=== PATIENT | female | born 1975 | race African-American/Black ===

== ENCOUNTER 2018-06-01 14:29 | Emergency (ER) | payer OTHER ==
[2018-06-01 15:08] LABS: Bilirubin Negative (Negative); Blood, Urine Negative (Negative); Clarity TURBID (Clear); Glucose, Urine (Dipstick) Negative (Negative); Leukocyte Large (Negative); Nitrite Negative (Negative); Protein, Urine (Dipstick) Negative (Neg-Trace); Specific Gravity, Urine 1.014 (1.002-1.036); Urobilinogen 0.2 mg/dL (0.2-1.0); pH, Urine 5.5 (5.0-9.0)
[2018-06-01 15:09] LABS: Bacteria/HPF 2+ HPF (None Seen); RBC/HPF 0-3 HPF (0-3); Squamous Epithelial 21-50 HPF (0-3); Yeast-AUWi Flag 15.7 (0-25.0)
[2018-06-01 15:21] LABS: Pathc Cast-AUWi Flag 6.25 (0-2.49)
[2018-06-01 15:23] LABS: Hyaline Casts/LPF 0-3 HYALINE CAST LPF (0-3 Hyaline); Other Casts/LPF None Seen LPF (0-3 Hyaline)
[2018-06-01 15:42] LABS: #Basophils 0.1 thou/uL (0.0-0.2); #Eosinphils 0.5 thou/uL (0.0-0.7); #Lymphocytes 2.6 thou/uL (1.20-3.40); #Monocytes 0.5 thou/uL (0.11-0.59); #Neutrophils 1.6 thou/uL (1.40-6.50); %Basophils 1.4 % (0.0-1.0); %Eosinophils 9.2 % (0.0-10.0); %Lymphocytes 49.5 % (21.0-51.0); %Monocytes 9.6 % (0.0-10.0); %Neutrophils 30.3 % (42.0-75.0); Hemoglobin 8.9 g/dL (12.0-16.0); Mean Corpuscular HGB CONC 31.1 g/dL (32.0-36.0); Mean Corpuscular Hemoglobin 19.8 pg (27.0-31.0); Mean Corpuscular Volume 63.6 fL (78.0-98.0); Mean Platelet Volume 10.9 fL (7.4-10.4); Platelet Count 294 thou/uL (130-400); RBC Distribution Width 16.1 % (11.5-14.5); Red Blood Cell (RBC) Count 4.47 mill/uL (4.20-5.40); White Blood Cell (WBC) Count 5.3 thou/uL (4.8-10.8)
[2018-06-01 15:47] LABS: INR-International Normal Ratio 2.9
[2018-06-01] MEDS ORDERED: Ketorolac Tromethamine 60 MG/2 ML VIAL ONE (15:48)
[2018-06-01 16:06] LABS: ALT (SGPT) 8 U/L (8-55); AST (SGOT) 11 U/L (5-34); Albumin 3.8 g/dL (3.5-5.0); Alkaline Phosphatase 72 U/L (40-150); Anion Gap 7 mmol/L (10-20); BUN (Urea Nitrogen) 5 mg/dL (7.0-18.7); Bilirubin, Total 0.5 mg/dL (0.2-1.2); Calc. Creatinine Clearance 0 mL/min (70-130); Calcium 8.9 mg/dL (7.8-10.44); Carbon Dioxide 25 mmol/L (22-29); Chloride 108 mmol/L (98-107); Estimated GFR-MDRD 90; Globulin 3.2 g/dL (2.4-3.5); Glucose 86 mg/dL (70-105); Sodium 136 mmol/L (136-145)
[2018-06-01 16:07] LABS: Anisocytosis SLIGHT = 6-15 cells (100X) (0-5/hpf); Elliptocytes SLIGHT = 2-5 cells (100X) (0-1/hpf); Hypochromia SLIGHT = 6-15 cells (100X) (0-5/hpf); MDiff Complete? YES; Microcytosis SLIGHT = 6-15 cells (100X) (0-5/hpf); Ovalocytes SLIGHT = 2-5 cells (100X) (0-1/hpf); PLT Morphology Comment Appears Adequate; Poikilocytosis SLIGHT = 6-15 cells (100X) (0-5/hpf); Polychromasia SLIGHT = 2-3 cells (100X) (0-2/hpf); Reflex for Review?? YES; Schistocytes SLIGHT = 2-5 cells (100X) (0-1/hpf); Spherocytes SLIGHT = 1-5 cells (100X) (None Seen); Target Cells SLIGHT = 2-5 cells (100X) (0-1/hpf)
== END 2018-06-01 16:03 | disposition home or self-care (01) ==
LOC: ERS 14:29
DX: N39.0 Urinary tract infection, site not specified (principal); I11.0 Hypertensive heart disease with heart failure; I50.9 Heart failure, unspecified; K21.9 Gastro-esophageal reflux disease without esophagitis; Z86.73 Personal history of transient ischemic attack (TIA), and cerebral infarction without residual deficits; F41.9 Anxiety disorder, unspecified; F43.10 Post-traumatic stress disorder, unspecified; Z79.899 Other long term (current) drug therapy
CPT/HCPCS: 36415; 80053; 81003; 81015; 85025; 85060; 85610; 87086; 96372; J1885

== ENCOUNTER 2019-01-26 13:48 | Outpatient (CLI) | payer OTHER ==
--- NOTE | 2019-01-26 14:55 | MRI ---
MRI RIGHT KNEE: Date: 01/26/19 PROVIDED CLINICAL HISTORY: Right knee pain. FINDINGS: The anterior cruciate ligament, posterior cruciate ligament, medial collateral ligament, and lateral collateral ligamentous complex demonstrate an intact MR appearance. There is signal alteration on flu id sensitive sequences involving the proximal patellar tendon suggesting tendinitis. The extensor mec hanism appears otherwise unremarkable. There is abnormal signal present involving the body and body-posterior horn junction of the lateral m eniscus compatible with nondisplaced complex tear. The medial meniscus demonstrates no evidence for t ear. There is articular cartilage irregularity and apparent full thickness articular cartilage loss involv ing the cranial aspects of the median ridge of the patella. Articular cartilage appears otherwise pre served. There is a physiologic amount of fluid within the knee joint. No focal concerning regional marrow or muscular signal abnormality is evident. Parameniscal cyst form ation is seen superficial to the inferior aspects of the medial patellar retinaculum, measuring appro ximately 1.9 cm in greatest transverse dimension involving its superficial component and a smaller co mponent deep to the patellar retinaculum adjacent to the anterior aspect of the medial tibial plateau . IMPRESSION: 1. Lateral meniscal tear as described. 2. Patellar chondrosis as described. 3. Parameniscal cyst formation at the anteromedial aspect of the knee as described. POS: OFF
== END 2019-01-26 13:49 | disposition home or self-care (01) ==
LOC: BICMRI 13:48
PROVIDERS: ATTEND Orthopaedic Surgery
DX: S83.241A Other tear of medial meniscus, current injury, right knee, initial encounter (principal); S83.281A Other tear of lateral meniscus, current injury, right knee, initial encounter

== ENCOUNTER 2019-02-06 17:08 | Observation (INO) | payer OTHER ==
[2019-02-06 17:42] LABS: Hemoglobin 11.8 g/dL (12.0-16.0); Mean Corpuscular HGB CONC 31.6 g/dL (32.0-36.0); Mean Corpuscular Hemoglobin 21.6 pg (27.0-31.0); Mean Corpuscular Volume 68.3 fL (78.0-98.0); Mean Platelet Volume 10.6 fL (7.4-10.4); Platelet Count 286 thou/uL (130-400); RBC Distribution Width 18.9 % (11.5-14.5); Red Blood Cell (RBC) Count 5.48 mill/uL (4.20-5.40); White Blood Cell (WBC) Count 6.5 thou/uL (4.8-10.8)
--- NOTE | 2019-02-06 17:48 | RAD ---
Chest one view HISTORY: Chest pain. COMPARISON: 04/23/2000 seen. FINDINGS: Cardiac silhouette and pulmonary vasculature are unremarkable. Mediastinum is midline. No c onfluent airspace consolidation or evidence of pneumothorax. IMPRESSION: No active cardiopulmonary abnormalities are demonstrated.
[2019-02-06 18:03] LABS: #Basophils 0.1 thou/uL (0.0-0.2); #Eosinphils 0.4 thou/uL (0.0-0.7); #Lymphocytes 3.1 thou/uL (1.20-3.40); #Monocytes 0.6 thou/uL (0.11-0.59); #Neutrophils 2.3 thou/uL (1.40-6.50); %Basophils 0.8 % (0.0-1.0); %Eosinophils 6.4 % (0.0-10.0); %Monocytes 9.8 % (0.0-10.0); %Neutrophils 35.1 % (42.0-75.0); Anisocytosis SLIGHT = 6-15 cells (100X) (0-5/hpf); Elliptocytes SLIGHT = 2-5 cells (100X) (0-1/hpf); Hypochromia SLIGHT = 6-15 cells (100X) (0-5/hpf); MDiff Complete? YES; Microcytosis SLIGHT = 6-15 cells (100X) (0-5/hpf); Platelet Morphology Comment Appears Adequate; Poikilocytosis SLIGHT = 6-15 cells (100X) (0-5/hpf)
[2019-02-06 18:07] LABS: ALT (SGPT) 7 U/L (8-55); AST (SGOT) 8 U/L (5-34); Albumin 4.3 g/dL (3.5-5.0); Alkaline Phosphatase 80 U/L (40-150); Anion Gap 12 mmol/L (10-20); BUN (Urea Nitrogen) 7 mg/dL (7.0-18.7); Bilirubin, Total 0.9 mg/dL (0.2-1.2); Calc. Creatinine Clearance 0 mL/min (70-130); Calcium 9.6 mg/dL (7.8-10.44); Carbon Dioxide 22 mmol/L (22-29); Chloride 107 mmol/L (98-107); Estimated GFR-MDRD 90; Globulin 3.5 g/dL (2.4-3.5); Glucose 89 mg/dL (70-105); Protein, Total 7.8 g/dL (6.0-8.3); Sodium 137 mmol/L (136-145)
[2019-02-06 20:29] LABS: Troponin I Less than 0.010 ng/mL (< 0.028)
[2019-02-06] MEDS ORDERED: Ondansetron ODT 4 MG TAB PO PRN (21:02)
[2019-02-07 00:50] LABS: Troponin I Less than 0.010 ng/mL (< 0.028)
[2019-02-07] MEDS ORDERED: Acetaminophen 325 MG TAB ONE (01:10)
[2019-02-07] MEDS: Acetaminophen 325 MG TAB PO PRN (01:13)
--- NOTE | 2019-02-07 01:51 | HP ---
PRIMARY CARE DOCTOR: The patient goes to [facility]. CODE STATUS: Full code. TIME OF EVALUATION: 9:20 p.m. CHIEF COMPLAINT: Chest pain. HISTORY OF PRESENT ILLNESS: This is a 43 [id number] patient, past medical history of polycystic ovarian disease, bulging disk in the back, congestive heart failure, hypertension, GERD, pulmonary embolism, on chronic anticoagulation, came to the hospital after having chest pain. The chest pain has been present for the past month with no clear triggers, no alleviating factors. The patient has family history of coronary artery disease. Dr. Capone has seen the patient and the patient had a stress test that was positive and she has been offered cardiac cath and the patient has been sent to the hospital. We will admit to the hospital and then defer to Dr. Capone for any further plan. The symptoms have been present for a month now, have been moderate. REVIEW OF SYSTEMS: CONSTITUTIONAL: No fever, chills, or generalized weakness. RESPIRATORY: No cough, sputum production, or shortness of breath. CARDIOVASCULAR: No chest pain or palpitation. GASTROINTESTINAL: No nausea, no vomiting, diarrhea, or abdominal pain. FOREST AIDE: No dizziness, headache, or feeling lightheaded. GENITOURINARY: No burning on urination. EXTREMITIES: No leg swelling. All other systems were reviewed and negative except for the findings mentioned above. PAST MEDICAL HISTORY: As mentioned in the HPI. PAST SURGICAL HISTORY: The patient has a history of tubal ligation. PSYCHIATRIC HISTORY: Anxiety and PTSD. FAMILY HISTORY: Reviewed and noncontributory to current presentation. SOCIAL HISTORY: The patient denies alcohol use. No drug use. She is a former smoker, quit smoking the past year. father with heart problems. KNOWN ALLERGIES: To sulfa. REPORTED MEDICATIONS: 1. Hydrochlorothiazide and acetaminophen. 2. Neurontin. 3. Flexeril. 4. Nexium. 5. Medrol. 6. Eliquis. 7. Buspirone. PHYSICAL EXAMINATION: VITAL SIGNS: On presentation, blood pressure 130/72 with heart rate 81, respiratory rate was 16, temperature 99.6. Pain was 9/10. Oxygen saturation was 100 on room air. GENERAL APPEARANCE: The patient is alert, oriented, in no acute distress. HEENT: Eyes, normal conjunctivae. Moist oral mucosa. Anicteric. No JVD. RESPIRATORY: Bilateral air entry. No rales. No wheezes. Symmetric expansion. CARDIOVASCULAR: Normal rate, regular rhythm. No murmurs. No gallop. No edema. ABDOMEN: Soft, normal bowel sounds. MUSCULOSKELETAL: Baseline range of motion and strength. SKIN: Warm, intact. No pallor. No rash. No redness. Capillary refill seems to be intact. NEURO: No evidence of any new focal weakness. Cranial nerves seem to be intact. PSYCHIATRIC: The patient is in good mood. No anxiety. Optimal judgment. DIAGNOSTIC DATA: EKG was reviewed. The patient has normal sinus rhythm with a rate of 69, [place] 184, QRS 88, QT corrected 439. Chest x-ray was reviewed. The patient has no active cardiopulmonary abnormalities. LABORATORY DATA: Reviewed. The patient has a white count of 6.5, hemoglobin 9.8, hematocrit 37.4, MCV 68.3, platelet count 286. Chemistry; sodium 137, potassium 4.0, chloride 107, carbon dioxide 22, anion gap 12, BUN 7, creatinine 0.84, GFR 90, glucose 89, calcium 9.6, total bilirubin 0.9. LFTs were negative. Troponin was negative x2. Serum total protein 7.8, albumin 4.3, globulin 3.5, albumin to globulin ratio is 1.2. ASSESSMENT AND PLAN: The patient will be placed in the hospital with follow medical problems. 1. Unstable angina. The patient had the symptoms for the past month and had been on and off with no significant improvement. Dr. Capone is seeing her and sent her to the hospital, most likely go for cardiac cath in the morning. We will follow recommendation from Cardiology. 2. Reportedly, history of congestive heart failure. Reconcile home medications and treat accordingly. 3. History of gastroesophageal reflux disease, reconcile home medications. 4. History of pulmonary embolism. The patient has been recommended to be on life long anticoagulation, that is why she takes Eliquis on a daily basis. If any bridge needs to be done, heparin drip would be the best way to go. 5. Deep venous thrombosis prophylaxis. The patient is on chronic anticoagulation. Job ID: [id number] [facility]
[2019-02-07] MEDS ORDERED: HYDROcodone/Acetaminophen 5/325 mg Tablet ONE (03:39)
[2019-02-07] MEDS ORDERED: HYDROcodone/Acetaminophen 10/325 mg Tablet ONE (03:40)
[2019-02-07] MEDS: HYDROcodone/Acetaminophen 10/325 mg Tablet PO PRN (03:42)
[2019-02-07 04:03] LABS: #Eosinphils 0.4 thou/uL (0.0-0.7); #Lymphocytes 3.8 thou/uL (1.20-3.40); #Monocytes 0.6 thou/uL (0.11-0.59); %Basophils 0.6 % (0.0-1.0); %Eosinophils 5.7 % (0.0-10.0); %Lymphocytes 48.3 % (21.0-51.0); %Monocytes 7.5 % (0.0-10.0); %Neutrophils 37.9 % (42.0-75.0); Hemoglobin 10.7 g/dL (12.0-16.0); Mean Corpuscular HGB CONC 31.8 g/dL (32.0-36.0); Mean Corpuscular Hemoglobin 21.8 pg (27.0-31.0); Mean Corpuscular Volume 68.7 fL (78.0-98.0); Platelet Count 248 thou/uL (130-400); White Blood Cell (WBC) Count 7.8 thou/uL (4.8-10.8)
[2019-02-07 04:37] LABS: Anion Gap 11 mmol/L (10-20); BUN (Urea Nitrogen) 8 mg/dL (7.0-18.7); Calc. Creatinine Clearance 0 mL/min (70-130); Calcium 9.7 mg/dL (7.8-10.44); Carbon Dioxide 24 mmol/L (22-29); Chloride 107 mmol/L (98-107); Estimated GFR-MDRD Greater than 90; Glucose 94 mg/dL (70-105); Potassium 3.7 mmol/L (3.5-5.1); Sodium 138 mmol/L (136-145)
[2019-02-07] MEDS ORDERED: HYDROcodone/Acetaminophen 5/325 mg Tablet PO PRN (08:10)
[2019-02-07] MEDS ORDERED: Loratadine 10 MG TAB PO PRN (08:10)
[2019-02-07] MEDS ORDERED: hydrALAZINE 20 MG/ML VIAL SLOW IVP PRN (08:10)
[2019-02-07] MEDS ORDERED: Bisacodyl 10 MG SUPP PR PRN (08:10)
[2019-02-07] MEDS ORDERED: Sodium Chloride 0.65% Nasal 44 ML BOT EA NARE PRN (08:10)
[2019-02-07] MEDS ORDERED: Cepastat Lozenges 1 LOZ PO PRN (08:10)
[2019-02-07] MEDS ORDERED: Ondansetron PF 4 MG/2 ML Vial IVP PRN (08:10)
[2019-02-07] MEDS ORDERED: Senokot S 8.6-50 MG TAB PO PRN (08:10)
[2019-02-07] MEDS ORDERED: Zolpidem Tartrate 5 MG TAB PO PRN (08:10)
[2019-02-07] MEDS ORDERED: Loperamide HCl 2 MG CAP PO PRN (08:10)
[2019-02-07] MEDS ORDERED: Diabetic Tussin 200 MG/10 ML UDCUP PO PRN (08:10)
[2019-02-07] MEDS ORDERED: Nitroglycerin 0.4 MG TAB (25 Tab Bottle) SL PRN (08:10)
[2019-02-07] MEDS ORDERED: Enoxaparin Sodium 40 MG/0.4 ML SYRINGE SC SCH (09:00)
[2019-02-07 09:10] LABS: Iron 24 ug/dL (50-170); Iron Binding Capacity, Total 416 mcg/dL (265-497)
[2019-02-07] MEDS ORDERED: Iron Sucrose Complex 200 MG in Sodium Chloride 0.9% 250 ML 250 ML IVPB SCH (09:45)
[2019-02-07] MEDS ORDERED: Iron, Sodium Ferric Gluconate 250 MG in Sodium Chloride 0.9% 100 ML IVPB SCH (10:15)
--- NOTE | 2019-02-07 11:15 | PDOC.PN ---
- Subjective Encounter Start Date: 02/07/19 Encounter Start Time: 07:00 -: old records requested/rev Patient seen and examined. No new complaints. No overnight events - Objective Resuscitation Status - Order Detail: 02/06/19 21:02 Resuscitation Status Routine Resuscitation Status: FULL: Full Resuscitation MAR Reviewed: Yes Result Diagrams: 02/07/19 03:39 02/07/19 03:39 Radiology Reviewed by me: Yes EKG Reviewed by me: Yes Phys Exam - Physical Examination Constitutional: NAD HEENT: PERRLA, moist MMs, sclera anicteric Neck: no JVD, supple Respiratory: no wheezing, no rales, no rhonchi, clear to auscultation bilateral Cardiovascular: RRR, no significant murmur, no rub Gastrointestinal: soft, non-tender, no distention, positive bowel sounds Musculoskeletal: no edema, pulses present Neurological: non-focal, normal sensation, moves all 4 limbs Lymphatic: no nodes Psychiatric: normal affect, A&O x 3 Skin: no rash, normal turgor Dx/Plan (1) Chest pain Code(s): R07.9 - CHEST PAIN, UNSPECIFIED Status: Acute (2) Anxiety Code(s): F41.9 - ANXIETY DISORDER, UNSPECIFIED Status: Chronic (3) Chronic back pain Code(s): M54.9 - DORSALGIA, UNSPECIFIED; G89.29 - OTHER CHRONIC PAIN Status: Chronic (4) GERD (gastroesophageal reflux disease) Code(s): K21.9 - GASTRO-ESOPHAGEAL REFLUX DISEASE WITHOUT ESOPHAGITIS Status: Chronic (5) Hypertension Code(s): I10 - ESSENTIAL (PRIMARY) HYPERTENSION Status: Chronic (6) Microcytic anemia Code(s): D50.9 - IRON DEFICIENCY ANEMIA, UNSPECIFIED Status: Chronic (7) Nonischemic cardiomyopathy Code(s): I42.9 - CARDIOMYOPATHY, UNSPECIFIED Status: Chronic (8) Obesity Code(s): E66.9 - OBESITY, UNSPECIFIED Status: Chronic (9) History of pulmonary embolism Code(s): Z86.711 - PERSONAL HISTORY OF PULMONARY EMBOLISM Status: Acute - Plan cont current plan of care * pt is off Elliquis since wednesday, cardiology to do cath * echo today * will check ferritin and then give IV iron * medication reviewed as below * symptomatic treatment. * spoke with cardiology Review of Systems - Review of Systems ENT: negative: Ear Pain, Ear Discharge, Nose Pain, Nose Discharge, Nose Congestion, Mouth Pain, Mouth Swelling, Throat Pain, Throat Swelling, Other Respiratory: negative: Cough, Dry, Shortness of Breath, Hemoptysis, SOB with Excertion, Pleuritic Pain, Sputum, Wheezing Cardiovascular: negative: chest pain, palpitations, orthopnea, paroxysmal nocturnal dyspnea, edema, light headedness, other Gastrointestinal: negative: Nausea, Vomiting, Abdominal Pain, Diarrhea, Constipation, Melena, Hematochezia, Other Genitourinary: negative: Dysuria, Frequency, Incontinence, Hematuria, Retention , Other Musculoskeletal: negative: Neck Pain, Shoulder Pain, Arm Pain, Back Pain, Hand Pain, Leg Pain, Foot Pain, Other Skin: negative: Rash, Lesions, Jerald, Bruising, Other - Medications/Allergies Allergies/Adverse Reactions: Allergies Allergy/AdvReac Type Severity Reaction Status Date / Time Sulfa (Sulfonamide Allergy Verified 09/16/15 20:44 Antibiotics) Medications: Current Medications Acetaminophen (Tylenol) 650 mg PO Q4H PRN PRN Reason: Headache/Fever/Mild Pain (1-3) Last Admin: 02/07/19 01:13 Dose: 650 mg Hydrocodone Bitart/Acetaminophen ([place] 10/325) 1 tab PO Q4H PRN PRN Reason: Moderate Pain (4-6) Last Admin: 02/07/19 03:42 Dose: 1 tab Hydrocodone Bitart/Acetaminophen ([place] 5/325) 1 tab PO Q4H PRN PRN Reason: Moderate Pain (4-6) Bisacodyl (Dulcolax) 10 mg [place] DAILYPRN PRN PRN Reason: Constipation Carvedilol (Coreg) 6.25 mg PO BID-[facility] Guaifenesin (Robitussin Sf) 200 mg PO Q4H PRN PRN Reason: Cough Hydralazine HCl (Apresoline) 10 mg SLOW IVP Q4H PRN PRN Reason: SBP > 180 and HR < 70 Ferric Sodium Gluconate Complex 250 mg/ Sodium Chloride 120 mls @ 60 mls/hr IVPB [facility] Stop: 02/07/19 12:15 Loperamide HCl (Imodium) 2 mg PO PRN PRN PRN Reason: Diarrhea/Loose Stools Loratadine (Claritin) 10 mg PO DAILYPRN PRN PRN Reason: Sinus Symptoms Nitroglycerin (Nitrostat) 0.4 mg SL Q5MIN PRN PRN Reason: Chest Pain Ondansetron HCl (Zofran Odt) 4 mg PO Q6H PRN PRN Reason: Nausea/Vomiting Ondansetron HCl (Zofran) 4 mg IVP Q6H PRN PRN Reason: Nausea/Vomiting Senna/Docusate Sodium (Senokot S) 2 tab PO BID PRN PRN Reason: Constipation Sodium Chloride ([place] Nasal [place] 0.65%) 0 ml EA NARE QIDPRN PRN PRN Reason: Nasal Congestion Throat Lozenges (Cepastat Lozenges) 1 ykle PO Q2H PRN PRN Reason: Sore Throat Zolpidem Tartrate (Ambien) 5 mg PO HSPRN PRN PRN Reason: Insomnia
[2019-02-07] MEDS: Carvedilol 6.25 MG TAB PO SCH ×2 (15:28→17:15)
[2019-02-07] MEDS ORDERED: Sacubitril 24.5 MG/Valsartan 25.5 MG TABLET PO SCH (21:00)
--- NOTE | 2019-02-07 22:01 | CON ---
DATE OF CONSULTATION: HISTORY OF PRESENT ILLNESS: The patient is an unfortunate 43-year-old woman, who presents with recurrent chest pain and dyspnea. The patient initially in 2012, she was diagnosed with nonischemic cardiomyopathy. She underwent a cardiac catheterization. She was found to have a severe decrease in left ventricular systolic function with an estimated ejection fraction of 20% to 25%. The patient was found to have normal coronary arteries. The patient was on medical therapy. She had an improvement in left ventricular function with estimated ejection fraction by echocardiogram of approximately 40%. The patient unfortunately not been compliant with her followup and has also been off some of her medications. The patient presented to [facility] recently with chest pain. She underwent a stress test, which revealed evidence of possible ischemia and a marked decrease in left ventricular systolic function. She also had an echocardiogram, which revealed severe decrease in left ventricular systolic function. The patient continues to report having left-sided chest discomfort. PAST MEDICAL HISTORY: 1. Cardiomyopathy. 2. PTSD. 3. Hypertension. 4. Anxiety disorder. 5. Depression. 6. History of pulmonary embolism. PAST SURGICAL HISTORY: Tubal ligation. SOCIAL HISTORY: Long history of tobacco abuse. FAMILY HISTORY: Strong family history of heart disease. MEDICATIONS: 1. Buspirone 10 t.i.d. 2. Gabapentin 300 t.i.d. 3. Coreg 6.25 b.i.d. 4. Eliquis 2.5 b.i.d. PHYSICAL EXAMINATION: GENERAL: Obese woman, in no acute distress. VITAL SIGNS: Blood pressure 131/82. NECK: No jugular venous distention. LUNGS: Clear to auscultation. HEART: Regular rate and rhythm. Normal S1, S2. ABDOMEN: Distended. EXTREMITIES: Show trace edema. VASCULAR: Radial pulses 2+. LABORATORY DATA: Sodium 138, potassium 3.7, chloride 107, bicarbonate 24, BUN 8 , creatinine 0.79. Troponin less than 0.01. White blood cell count 7.8, hemoglobin 10.7, hematocrit 33.7, platelets are 248. Her EKG revealed her to have normal sinus rhythm with left ventricular hypertrophy. IMPRESSION: 1. Cardiomyopathy. 2. Chest pain. 3. History of pulmonary embolism. 4. Hypertension. 5. Obesity. 6. Depression. PLAN: This patient came to my office yesterday after undergoing evaluation at [facility] including an echocardiogram and Cardiolite stress test. The patient has had a marked decrease in her left ventricular systolic function since I previously saw her a year ago. With the patient having recurrent chest pain, we would recommend repeat cardiac catheterization to see if she developed progressive coronary artery disease. We will start the patient on Entresto. We will hold the patient's Eliquis. We will follow this patient with you through her hospitalization. Job ID: [id number] [facility]
[2019-02-07] MEDS ORDERED: busPIRone HCl 10 MG TAB PO SCH (23:00)
[2019-02-08] MEDS: Acetaminophen 325 MG TAB PO PRN (04:53)
[2019-02-08] MEDS: Carvedilol 6.25 MG TAB PO SCH ×2 (08:50→16:52)
[2019-02-08] MEDS: Gabapentin 300 MG CAP PO SCH ×3 (08:50→20:19)
[2019-02-08] MEDS: busPIRone HCl 10 MG TAB PO SCH ×3 (08:50→20:19)
[2019-02-08] MEDS ORDERED: Enoxaparin Sodium 100 MG/ML SYRINGE SC SCH (09:00)
--- NOTE | 2019-02-08 10:38 | PDOC.PN ---
- Subjective Encounter Start Date: 02/08/19 Encounter Start Time: 08:00 Patient seen and examined. No new complaints. No overnight events - Objective Resuscitation Status - Order Detail: 02/06/19 21:02 Resuscitation Status Routine Resuscitation Status: FULL: Full Resuscitation MAR Reviewed: Yes Vital Signs & Weight: Vital Signs (12 hours) Temp Pulse Resp BP BP Pulse Ox 02/08/19 07:45 98.5 F 66 14 115/74 98 02/08/19 04:11 98.4 F 87 15 122/74 96 Weight Weight 219 lb 6.4 oz I&O: 02/07/19 02/08/19 02/09/19 06:59 06:59 06:59 Intake Total 1170 Balance 1170 Result Diagrams: 02/07/19 03:39 02/07/19 03:39 EKG Reviewed by me: Yes Phys Exam - Physical Examination Constitutional: NAD HEENT: PERRLA, moist MMs, sclera anicteric Neck: no JVD, supple Respiratory: no wheezing, no rales, no rhonchi Cardiovascular: RRR, no significant murmur, no rub Gastrointestinal: soft, non-tender, no distention, positive bowel sounds Musculoskeletal: no edema, pulses present Neurological: non-focal, normal sensation, moves all 4 limbs Lymphatic: no nodes Psychiatric: normal affect, A&O x 3 Skin: no rash, normal turgor Dx/Plan (1) Chest pain Code(s): R07.9 - CHEST PAIN, UNSPECIFIED Status: Acute (2) Anxiety Code(s): F41.9 - ANXIETY DISORDER, UNSPECIFIED Status: Chronic (3) Chronic back pain Code(s): M54.9 - DORSALGIA, UNSPECIFIED; G89.29 - OTHER CHRONIC PAIN Status: Chronic (4) GERD (gastroesophageal reflux disease) Code(s): K21.9 - GASTRO-ESOPHAGEAL REFLUX DISEASE WITHOUT ESOPHAGITIS Status: Chronic (5) Hypertension Code(s): I10 - ESSENTIAL (PRIMARY) HYPERTENSION Status: Chronic (6) Microcytic anemia Code(s): D50.9 - IRON DEFICIENCY ANEMIA, UNSPECIFIED Status: Chronic (7) Nonischemic cardiomyopathy Code(s): I42.9 - CARDIOMYOPATHY, UNSPECIFIED Status: Chronic (8) Obesity Code(s): E66.9 - OBESITY, UNSPECIFIED Status: Chronic Qualifiers: Body mass index: BMI 30.0-30.9 (9) History of pulmonary embolism Code(s): Z86.711 - PERSONAL HISTORY OF PULMONARY EMBOLISM Status: Acute - Plan cont current plan of care * will give one more dose of IV iron * cardiology to decide about cardiac cath * medication reviewed as below * symptomatic treatment. * continue coreg and entresto Review of Systems - Review of Systems ENT: negative: Ear Pain, Ear Discharge, Nose Pain, Nose Discharge, Nose Congestion, Mouth Pain, Mouth Swelling, Throat Pain, Throat Swelling, Other Respiratory: negative: Cough, Dry, Shortness of Breath, Hemoptysis, SOB with Excertion, Pleuritic Pain, Sputum, Wheezing Cardiovascular: negative: chest pain, palpitations, orthopnea, paroxysmal nocturnal dyspnea, edema, light headedness, other Gastrointestinal: negative: Nausea, Vomiting, Abdominal Pain, Diarrhea, Constipation, Melena, Hematochezia, Other Genitourinary: negative: Dysuria, Frequency, Incontinence, Hematuria, Retention , Other Musculoskeletal: negative: Neck Pain, Shoulder Pain, Arm Pain, Back Pain, Hand Pain, Leg Pain, Foot Pain, Other Skin: negative: Rash, Lesions, Jerald, Bruising, Other - Medications/Allergies Allergies/Adverse Reactions: Allergies Allergy/AdvReac Type Severity Reaction Status Date / Time Sulfa (Sulfonamide Allergy Verified 02/07/19 14:13 Antibiotics) Medications: Current Medications Acetaminophen (Tylenol) 650 mg PO Q4H PRN PRN Reason: Headache/Fever/Mild Pain (1-3) Last Admin: 02/08/19 04:53 Dose: 650 mg Hydrocodone Bitart/Acetaminophen ([place] 10/325) 1 tab PO Q4H PRN PRN Reason: Moderate Pain (4-6) Last Admin: 02/07/19 03:42 Dose: 1 tab Hydrocodone Bitart/Acetaminophen ([place] 5/325) 1 tab PO Q4H PRN PRN Reason: Moderate Pain (4-6) Bisacodyl (Dulcolax) 10 mg [place] DAILYPRN PRN PRN Reason: Constipation Buspirone HCl (Buspar) 10 mg PO TID [facility] Last Admin: 02/08/19 08:50 Dose: 10 mg Carvedilol (Coreg) 6.25 mg PO BID-[facility] Last Admin: 02/08/19 08:50 Dose: 6.25 mg Gabapentin (Neurontin) 300 mg PO TID [facility] Last Admin: 02/08/19 08:50 Dose: 300 mg Guaifenesin (Robitussin Sf) 200 mg PO Q4H PRN PRN Reason: Cough Hydralazine HCl (Apresoline) 10 mg SLOW IVP Q4H PRN PRN Reason: SBP > 180 and HR < 70 Iron Sucrose 200 mg/ Sodium (Chloride) 260 mls @ 125 mls/hr IVPB [facility] Loperamide HCl (Imodium) 2 mg PO PRN PRN PRN Reason: Diarrhea/Loose Stools Loratadine (Claritin) 10 mg PO DAILYPRN PRN PRN Reason: Sinus Symptoms Miscellaneous Information (Communication Order-Pharmacy) 0 each FS .CATH 02/09 [facility] Stop: 02/09/19 15:00 Nitroglycerin (Nitrostat) 0.4 mg SL Q5MIN PRN PRN Reason: Chest Pain Ondansetron HCl (Zofran Odt) 4 mg PO Q6H PRN PRN Reason: Nausea/Vomiting Ondansetron HCl (Zofran) 4 mg IVP Q6H PRN PRN Reason: Nausea/Vomiting Sacubitril/Valsartan (Entresto 24 Mg-26 Mg Tablet) 1 tab PO BID [facility] Last Admin: 02/08/19 08:50 Dose: 1 tab Senna/Docusate Sodium (Senokot S) 2 tab PO BID PRN PRN Reason: Constipation Sodium Chloride ([place] Nasal [place] 0.65%) 0 ml EA NARE QIDPRN PRN PRN Reason: Nasal Congestion Sodium Chloride (Flush - Normal Saline) 10 ml IVF Q12HR [facility] Last Admin: 02/08/19 08:50 Dose: 10 ml Sodium Chloride (Flush - Normal Saline) 10 ml IVF PRN PRN PRN Reason: Saline Flush Throat Lozenges (Cepastat Lozenges) 1 kyle PO Q2H PRN PRN Reason: Sore Throat Zolpidem Tartrate (Ambien) 5 mg PO HSPRN PRN PRN Reason: Insomnia
[2019-02-08] MEDS ORDERED: Iron Sucrose Complex 200 MG in Sodium Chloride 0.9% 250 ML 250 ML IVPB SCH (10:45)
[2019-02-08] MEDS ORDERED: Iron, Sodium Ferric Gluconate 250 MG in Sodium Chloride 0.9% 100 ML IVPB SCH (12:00)
[2019-02-08 13:29] VITALS: BMI 30.6
[2019-02-09] MEDS ORDERED: Lidocaine 2% Viscous Solution 10 ML, Aluminum & Magnesium Hydroxide 30 ML SSW SCH (00:45)
[2019-02-09] MEDS: Gabapentin 300 MG CAP PO SCH ×3 (05:02→20:54)
[2019-02-09] MEDS: Carvedilol 6.25 MG TAB PO SCH ×2 (05:02→16:06)
[2019-02-09] MEDS: busPIRone HCl 10 MG TAB PO SCH ×3 (05:02→20:54)
[2019-02-09] MEDS: Acetaminophen 325 MG TAB PO PRN (05:02)
[2019-02-09 05:35] LABS: Hemoglobin 10.5 g/dL (12.0-16.0); Platelet Count 251 thou/uL (130-400)
[2019-02-09 05:55] LABS: Calc. Creatinine Clearance 152 mL/min (70-130); Estimated GFR-MDRD Greater than 90
[2019-02-09 07:40] LABS: BHCG - Serum Negative (NEGATIVE); Pregs Control Background? CLEAR/WHITE (CLR/WHITE); Pregs Control Bar Appear? YES (CONTROL BAR)
[2019-02-09] MEDS ORDERED: Midazolam HCl 2 mg/2 ml Vial ONE (08:10)
[2019-02-09] MEDS ORDERED: Acetaminophen/Codeine 30-300mg Tablet PO PRN ×2 (08:30)
[2019-02-09] MEDS ORDERED: Nitroglycerin 0.4 MG TAB (25 Tab Bottle) SL PRN (08:30)
[2019-02-09] MEDS ORDERED: Sodium Chloride 0.9% 200 ML IV PRN (08:30)
[2019-02-09] MEDS: Sacubitril 49 MG/Valsartan 51 MG TABLET PO SCH ×2 (09:54→20:54)
[2019-02-09] MEDS ORDERED: Iopamidol 370 76% 100 ML VIAL ONE (12:57)
--- NOTE | 2019-02-09 14:01 | DIS ---
DATE OF ADMISSION: 02/06/2019 DATE OF DISCHARGE: 02/09/2019 [facility] DISCHARGE DIAGNOSES: 1. Chest pain rule out acute coronary syndrome. 2. Status post cardiac catheterization and showed normal coronaries. SECONDARY DISCHARGE DIAGNOSES: Chronic nonischemic cardiomyopathy, chronic microcytic anemia, history of pulmonary embolism, history of chronic anticoagulation, anxiety disorder, chronic low back pain, obesity with BMI 30. PRIMARY PROCEDURE/OPERATION: Cardiac catheterization was performed by Dr. Capone and found normal coronaries. RADIOLOGICAL INVESTIGATION: Chest x-ray showed cardiomegaly. SIGNIFICANT LABORATORY DATA: WBC 7.8, hemoglobin 10.5, platelet 251. Sodium 138, potassium 3.7, BUN 8, creatinine 0.79, calcium 9.7. Iron 24, TIBC 416, ferritin 11.53. TSH 1.34. test negative. DISCHARGE MEDICATIONS: 1. [place] 10 one tablet q.4 hourly p.r.n. 2. Eliquis 2.5 mg p.o. b.i.d. (this medication needs to be restarted tomorrow). 3. BuSpar 10 mg t.i.d. 4. Coreg 6.25 mg b.i.d. 5. Flexeril 10 mg b.i.d. p.r.n. 6. Gabapentin 300 mg p.o. t.i.d. 7. Entresto 49/51 one tablet b.i.d. CONTRAINDICATION: None. CODE STATUS: Full code. INPATIENT CARDING MACHINE OPERATOR: Dr. Capone was consulted while in hospital. TEST RESULTS PENDING ON DISCHARGE: None. ALLERGIES: SULFA DRUGS. DISCHARGE PLAN: Post hospital, the patient will follow up with primary care physician and media sales consultant as instructed. HOSPITAL COURSE: A 43-year-old female who has underlying history of nonischemic cardiomyopathy. She had recently stress test done and echocardiography done at [facility]. Her EF was gotten worse and the patient saw her primary media sales consultant, Dr. Capone who advised her to go to emergency room for evaluation. This patient was having intermittent chest pain. She was taking Eliquis and that is why Cardiology decided to do cardiac catheterization after stopping Eliquis therapy. This morning, the patient underwent cardiac catheterization and that turned out to be normal. She has very low EF with 25% based on cardiac catheterization and Cardiology recommended LifeVest therapy before discharge. During this admission, the patient was started on Entresto medication. Necessary patient medication assistance was provided. While in the hospital, we noted that she has iron-deficiency anemia and that is why we treated her with IV iron for 2 doses in the hospital and the patient will continue ferrous sulfate 325 mg p.o. daily upon discharge. All new medication prescription given. The patient will resume her Eliquis therapy from tomorrow. I have seen and examined the patient at bedside today. REVIEW OF SYSTEMS: All review of systems reviewed with her and negative. PHYSICAL EXAMINATION: VITAL SIGNS: Temperature 98.5, pulse 88, respiratory rate 14, saturation 98%, blood pressure 112/76, weight 216 pounds. GENERAL: The patient is currently alert, awake, no obvious acute distress. HEENT: Head; normocephalic, atraumatic. LUNGS: Clear to auscultation without any rhonchi or rales. CARDIAC: S1, S2. Regular without any murmur. ABDOMEN: Soft and benign. NEUROLOGIC: Nonfocal examination. The patient is medically stable for discharge today. During this admission, her telemetry remained unremarkable. Job ID: [id number]
[2019-02-09] MEDS: HYDROcodone/Acetaminophen 10/325 mg Tablet PO PRN (20:54)
[2019-02-10] MEDS ORDERED: Apixaban 2.5 MG TAB PO SCH (09:00)
[2019-02-10] MEDS: Carvedilol 6.25 MG TAB PO SCH (10:00)
[2019-02-10] MEDS: busPIRone HCl 10 MG TAB PO SCH (10:01)
[2019-02-10] MEDS: Gabapentin 300 MG CAP PO SCH (10:01)
[2019-02-10] MEDS: Sacubitril 49 MG/Valsartan 51 MG TABLET PO SCH (10:01)
--- NOTE | 2019-02-10 11:23 | PDOC.PN ---
- Subjective Encounter Start Date: 02/10/19 Encounter Start Time: 08:45 Patient seen and examined. No new complaints. No overnight events - Objective Resuscitation Status - Order Detail: 02/06/19 21:02 Resuscitation Status Routine Resuscitation Status: FULL: Full Resuscitation MAR Reviewed: Yes Vital Signs & Weight: Vital Signs (12 hours) Temp Pulse Resp BP BP BP Pulse Ox 02/10/19 10:39 98 02/10/19 10:00 118/66 02/10/19 07:30 98.6 F 81 20 118/77 98 02/10/19 05:45 98 02/10/19 04:24 98.3 F 73 20 111/72 98 02/09/19 23:38 98.4 F 74 20 101/63 99 Weight Admit Weight 212 lb 8 oz Weight 217 lb 1.6 oz I&O: 02/09/19 02/10/19 02/11/19 06:59 06:59 06:59 Intake Total 2070 1860 300 Output Total 900 Balance 2070 960 300 Result Diagrams: 02/09/19 04:32 02/09/19 04:32 EKG Reviewed by me: Yes Phys Exam - Physical Examination Constitutional: NAD HEENT: PERRLA, moist MMs, sclera anicteric Neck: no JVD, supple Respiratory: no wheezing, no rales, no rhonchi Cardiovascular: RRR, no significant murmur, no rub Gastrointestinal: soft, non-tender, no distention, positive bowel sounds Musculoskeletal: no edema, pulses present Neurological: non-focal, normal sensation, moves all 4 limbs Lymphatic: no nodes Psychiatric: normal affect, A&O x 3 Skin: no rash, normal turgor Dx/Plan (1) Chest pain Code(s): R07.9 - CHEST PAIN, UNSPECIFIED Status: Acute (2) Anxiety Code(s): F41.9 - ANXIETY DISORDER, UNSPECIFIED Status: Chronic (3) Chronic back pain Code(s): M54.9 - DORSALGIA, UNSPECIFIED; G89.29 - OTHER CHRONIC PAIN Status: Chronic (4) GERD (gastroesophageal reflux disease) Code(s): K21.9 - GASTRO-ESOPHAGEAL REFLUX DISEASE WITHOUT ESOPHAGITIS Status: Chronic (5) Hypertension Code(s): I10 - ESSENTIAL (PRIMARY) HYPERTENSION Status: Chronic (6) Microcytic anemia Code(s): D50.9 - IRON DEFICIENCY ANEMIA, UNSPECIFIED Status: Chronic (7) Nonischemic cardiomyopathy Code(s): I42.9 - CARDIOMYOPATHY, UNSPECIFIED Status: Chronic (8) Obesity Code(s): E66.9 - OBESITY, UNSPECIFIED Status: Chronic Qualifiers: Body mass index: BMI 30.0-30.9 (9) History of pulmonary embolism Code(s): Z86.711 - PERSONAL HISTORY OF PULMONARY EMBOLISM Status: Acute - Plan cont current plan of care, plan discussed w/ family * await life vest arrangement * stable for discharge * medication reviewed as below * symptomatic treatment. Review of Systems - Review of Systems ENT: negative: Ear Pain, Ear Discharge, Nose Pain, Nose Discharge, Nose Congestion, Mouth Pain, Mouth Swelling, Throat Pain, Throat Swelling, Other Respiratory: negative: Cough, Dry, Shortness of Breath, Hemoptysis, SOB with Excertion, Pleuritic Pain, Sputum, Wheezing Cardiovascular: negative: chest pain, palpitations, orthopnea, paroxysmal nocturnal dyspnea, edema, light headedness, other Gastrointestinal: negative: Nausea, Vomiting, Abdominal Pain, Diarrhea, Constipation, Melena, Hematochezia, Other Genitourinary: negative: Dysuria, Frequency, Incontinence, Hematuria, Retention , Other Musculoskeletal: negative: Neck Pain, Shoulder Pain, Arm Pain, Back Pain, Hand Pain, Leg Pain, Foot Pain, Other - Medications/Allergies Allergies/Adverse Reactions: Allergies Allergy/AdvReac Type Severity Reaction Status Date / Time Sulfa (Sulfonamide Allergy Verified 02/07/19 14:13 Antibiotics) Medications: Current Medications Acetaminophen (Tylenol) 650 mg PO Q4H PRN PRN Reason: Headache/Fever/Mild Pain (1-3) Last Admin: 02/09/19 05:02 Dose: 650 mg Acetaminophen/Codeine Phosphate (Tylenol #3) 1 tab PO Q4H PRN PRN Reason: Mild Pain (1-3) Acetaminophen/Codeine Phosphate (Tylenol #3) 2 tab PO Q4H PRN PRN Reason: Moderate Pain (4-6) Hydrocodone Bitart/Acetaminophen ([place] 10/325) 1 tab PO Q4H PRN PRN Reason: Moderate Pain (4-6) Last Admin: 02/09/19 20:54 Dose: 1 tab Hydrocodone Bitart/Acetaminophen ([place] 5/325) 1 tab PO Q4H PRN PRN Reason: Moderate Pain (4-6) Apixaban (Eliquis) 2.5 mg PO BID [facility] Last Admin: 02/10/19 10:01 Dose: 2.5 mg Bisacodyl (Dulcolax) 10 mg ID DAILYPRN PRN PRN Reason: Constipation Buspirone HCl (Buspar) 10 mg PO TID [facility] Last Admin: 02/10/19 10:01 Dose: 10 mg [facility] Admin: 02/10/19 10:00 Dose: 6.25 mg Gabapentin (Neurontin) 300 mg PO TID [facility] Last Admin: 02/10/19 10:01 Dose: 300 mg Guaifenesin (Robitussin Sf) 200 mg PO Q4H PRN PRN Reason: Cough Hydralazine HCl (Apresoline) 10 mg SLOW IVP Q4H PRN PRN Reason: SBP > 180 and HR < 70 Loperamide HCl (Imodium) 2 mg PO PRN PRN PRN Reason: Diarrhea/Loose Stools Loratadine (Claritin) 10 mg PO DAILYPRN PRN PRN Reason: Sinus Symptoms Nitroglycerin (Nitrostat) 0.4 mg SL Q5MIN PRN PRN Reason: Chest Pain Nitroglycerin (Nitrostat) 0.4 mg SL Q5MIN PRN PRN Reason: Chest Pain Ondansetron HCl (Zofran Odt) 4 mg PO Q6H PRN PRN Reason: Nausea/Vomiting Ondansetron HCl (Zofran) 4 mg IVP Q6H PRN PRN Reason: Nausea/Vomiting Sacubitril/Valsartan (Entresto 49 Mg-51 Mg Tablet) 1 tab PO BID [facility] Last Admin: 02/10/19 10:01 Dose: 1 tab Senna/Docusate Sodium (Senokot S) 2 tab PO BID PRN PRN Reason: Constipation Sodium Chloride ([place]ard Nasal [place] 0.65%) 0 ml EA NARE QIDPRN PRN PRN Reason: Nasal Congestion Sodium Chloride (Flush - Normal Saline) 10 ml IVF Q12HR [facility] Last Admin: 02/10/19 10:01 Dose: 10 ml Sodium Chloride (Flush - Normal Saline) 10 ml IVF PRN PRN PRN Reason: Saline Flush Throat Lozenges (Cepastat Lozenges) 1 kyle PO Q2H PRN PRN Reason: Sore Throat Zolpidem Tartrate (Ambien) 5 mg PO HSPRN PRN PRN Reason: Insomnia
[2019-02-10 12:21] VITALS: BP 117/72; TEMP 98.3
--- NOTE | 2019-02-10 14:04 | EKG ---
Test Reason : CHEST PAIN Blood Pressure : / mmHG Vent. Rate : 069 BPM Atrial Rate : 069 BPM P-R Int : 184 ms QRS Dur : 088 ms QT Int : 410 ms P-R-T Axes : 039 000 -02 degrees QTc Int : 439 ms Normal sinus rhythm Possible Left atrial enlargement Left ventricular hypertrophy Abnormal ECG Confirmed by TEZ HERNANDEZ DO ([id number]), editorial director JESSICA HURLEY ([id number]) on 02/10/2019 2:04:28 PM Referred By: Confirmed By:TEZ HERNANDEZ DO
--- NOTE | 2019-02-10 14:50 | DIS ---
DATE OF ADMISSION: 02/06/2019 DATE OF DISCHARGE: 02/10/2019 Please see my discharge summary dictated yesterday for further details. There was no change in discharge summary and medication. The patient stayed in the hospital extra day because LifeVest was not arranged and this will be done today. I have seen and examined the patient at bedside today. Please see my progress note from today for further detail. Job ID: [id number]
== END 2019-02-10 14:15 | disposition home or self-care (01) ==
LOC: ERS 17:08 → EEVIPCON 19:31 → ERHOLD 19:31 → 2SW 02-07 13:41
PROVIDERS: ADMIT Hospitalist; ATTEND Hospitalist
PROC: 4A023N7 Measurement of Cardiac Sampling and Pressure, Left Heart, Percutaneous Approach (ICD-10-PCS; principal; 2019-02-09)
PROC: B2001ZZ Plain Radiography of Single Coronary Artery using Low Osmolar Contrast (ICD-10-PCS; 2019-02-09)
DX: R07.9 Chest pain, unspecified (principal); I11.0 Hypertensive heart disease with heart failure; I50.9 Heart failure, unspecified; I42.9 Cardiomyopathy, unspecified; F43.10 Post-traumatic stress disorder, unspecified; F41.9 Anxiety disorder, unspecified; F32.9 Major depressive disorder, single episode, unspecified; E66.9 Obesity, unspecified; E78.5 Hyperlipidemia, unspecified; K21.9 Gastro-esophageal reflux disease without esophagitis; G89.29 Other chronic pain; M54.9 Dorsalgia, unspecified; D50.9 Iron deficiency anemia, unspecified; Z68.30 Body mass index [BMI] 30.0-30.9, adult; Z79.01 Long term (current) use of anticoagulants; Z79.899 Other long term (current) drug therapy; Z87.891 Personal history of nicotine dependence; Z88.2 Allergy status to sulfonamides
CPT/HCPCS: 36415; 71045; 80048; 80053; 82565; 82728; 83540; 83550; 84443; 84484; 84703; 85014; 85018; 85025; 85049; 93005; 93458; 94760; 96372; 96374; 99152; C1769; G0378; J1650; J2250; J2916; J3490; Q9967

== ENCOUNTER 2019-02-14 04:09 | Emergency (ER) | payer OTHER ==
[2019-02-14] MEDS ORDERED: Aspirin Chewable 81 MG TAB ONE (04:55)
[2019-02-14] MEDS ORDERED: Nitroglycerin 0.4 MG TAB 1 EACH ONE (04:55)
[2019-02-14 05:40] LABS: #Basophils 0.1 thou/uL (0.0-0.2); #Eosinphils 0.4 thou/uL (0.0-0.7); #Lymphocytes 3.8 thou/uL (1.20-3.40); #Monocytes 0.5 thou/uL (0.11-0.59); #Neutrophils 3.3 thou/uL (1.40-6.50); %Basophils 0.9 % (0.0-1.0); %Eosinophils 4.7 % (0.0-10.0); %Neutrophils 41.4 % (42.0-75.0); Hemoglobin 10.7 g/dL (12.0-16.0); Mean Corpuscular HGB CONC 32.7 g/dL (32.0-36.0); Mean Corpuscular Hemoglobin 22.8 pg (27.0-31.0); Mean Corpuscular Volume 69.7 fL (78.0-98.0); Mean Platelet Volume 11.7 fL (7.4-10.4); Platelet Count 240 thou/uL (130-400)
[2019-02-14] MEDS ORDERED: Morphine 4 MG/ML VIAL ONE (05:58)
[2019-02-14 06:01] LABS: ALT (SGPT) 7 U/L (8-55); AST (SGOT) 16 U/L (5-34); Alkaline Phosphatase 65 U/L (40-150); Anion Gap 15 mmol/L (10-20); BUN (Urea Nitrogen) 13 mg/dL (7.0-18.7); Bilirubin, Total 0.2 mg/dL (0.2-1.2); Calc. Creatinine Clearance 0 mL/min (70-130); Calcium 9.9 mg/dL (7.8-10.44); Carbon Dioxide 19 mmol/L (22-29); Chloride 105 mmol/L (98-107); Estimated GFR-MDRD Greater than 90; Globulin 3.3 g/dL (2.4-3.5); Glucose 93 mg/dL (70-105); Potassium 4.1 mmol/L (3.5-5.1); Protein, Total 7.3 g/dL (6.0-8.3); Sodium 135 mmol/L (136-145)
[2019-02-14 06:04] LABS: Troponin I 0.016 ng/mL (< 0.028)
--- NOTE | 2019-02-14 08:09 | RAD ---
RADIOGRAPH CHEST 1 VIEW: DATE: 02/14/2019 HISTORY: 43-year-old female with chest pain FINDINGS: There are no airspace densities, pulmonary edema, pneumothorax, or cardiomegaly. The lateral costophr enic angles are sharp. IMPRESSION: No acute cardiopulmonary findings.
== END 2019-02-14 07:20 | disposition home or self-care (01) ==
LOC: ERS 04:09
DX: R07.89 Other chest pain (principal)
CPT/HCPCS: 71045; 80053; 84484; 85025; 93005; 96374; J2270

== ENCOUNTER 2019-03-15 06:40 | Emergency (ER) | payer OTHER ==
[2019-03-15 07:06] LABS: #Eosinphils 0.6 thou/uL (0.0-0.7); #Lymphocytes 3.6 thou/uL (1.20-3.40); #Monocytes 0.5 thou/uL (0.11-0.59); #Neutrophils 3.5 thou/uL (1.40-6.50); %Basophils 0.6 % (0.0-1.0); %Lymphocytes 43.9 % (21.0-51.0); %Monocytes 5.9 % (0.0-10.0); %Neutrophils 42.6 % (42.0-75.0); Hemoglobin 12.1 g/dL (12.0-16.0); Mean Corpuscular HGB CONC 32.2 g/dL (32.0-36.0); Mean Corpuscular Hemoglobin 24.4 pg (27.0-31.0); Mean Corpuscular Volume 75.7 fL (78.0-98.0); Mean Platelet Volume 10.1 fL (7.4-10.4); Platelet Count 243 thou/uL (130-400); RBC Distribution Width 20.2 % (11.5-14.5); Red Blood Cell (RBC) Count 4.96 mill/uL (4.20-5.40); White Blood Cell (WBC) Count 8.3 thou/uL (4.8-10.8)
[2019-03-15 07:32] LABS: BHCG - Serum Negative (NEGATIVE); Pregs Control Background? CLEAR/WHITE (CLR/WHITE); Pregs Control Bar Appear? YES (CONTROL BAR)
[2019-03-15 07:40] LABS: ALT (SGPT) Less than 7 U/L (8-55); AST (SGOT) 8 U/L (5-34); Albumin 3.8 g/dL (3.5-5.0); Alkaline Phosphatase 61 U/L (40-150); Anion Gap 13 mmol/L (10-20); BUN (Urea Nitrogen) 8 mg/dL (7.0-18.7); Bilirubin, Total 0.3 mg/dL (0.2-1.2); Calc. Creatinine Clearance 0 mL/min (70-130); Calcium 9.6 mg/dL (7.8-10.44); Carbon Dioxide 22 mmol/L (22-29); Chloride 106 mmol/L (98-107); Estimated GFR-MDRD Greater than 90; Globulin 2.7 g/dL (2.4-3.5); Glucose 106 mg/dL (70-105); Potassium 3.5 mmol/L (3.5-5.1); Protein, Total 6.5 g/dL (6.0-8.3); Sodium 137 mmol/L (136-145)
--- NOTE | 2019-03-15 07:50 | RAD ---
SINGLE VIEW CHEST: Date: 03/15/19 COMPARISON: 02/14/19. HISTORY: Chest pain for 2 days. FINDINGS: Single view of the chest shows a normal sized cardiomediastinal silhouette. There is no evidence of c onsolidation, mass, or pleural effusion. The bones are unremarkable. IMPRESSION: No evidence of acute cardiopulmonary disease. POS: CET
--- NOTE | 2019-03-15 07:56 | CT ---
CT PULMONARY ANGIOGRAM WITH IV CONTRAST AND 3-D POSTPROCESSING: HISTORY:Chest pain FINDINGS: There is good contrast opacification of the pulmonary arterial vasculature without filling defects to suggest pulmonary embolism. The thoracic aorta is not well opacified and is without aneurysm. No pleural or pericardial effusions are seen. No pneumothoraces, focal areas of consolidation are noted. There is a 6 mm parenchymal solid lung nod ule in the right middle lobe. There are mild degenerative changes in the spine. Upper abdominal tomograms demonstrate a tiny cyst in the dome of the liver IMPRESSION: No CT evidence of pulmonary embolism. RECOMMENDATION: Follow-up CT scan of the chest to monitor the right lung nodule [facility]
[2019-03-15] MEDS ORDERED: ISOVUE-370 76%-LOCM 1 ML ONE (10:13)
== END 2019-03-15 08:12 | disposition home or self-care (01) ==
LOC: ERS 06:40
DX: R07.89 Other chest pain (principal); I11.0 Hypertensive heart disease with heart failure; I50.9 Heart failure, unspecified; Z86.711 Personal history of pulmonary embolism; K21.9 Gastro-esophageal reflux disease without esophagitis; F43.10 Post-traumatic stress disorder, unspecified; F41.9 Anxiety disorder, unspecified; Z79.899 Other long term (current) drug therapy
CPT/HCPCS: 36415; 71045; 71275; 80053; 83690; 84484; 84703; 85025; 93005; 94760; Q9966

== ENCOUNTER 2019-08-05 03:49 | Emergency (ER) | payer OTHER ==
[2019-08-05 04:52] LABS: Hemoglobin 12.8 g/dL (12.0-16.0); Mean Corpuscular HGB CONC 32.8 g/dL (32.0-36.0); Mean Corpuscular Hemoglobin 26.9 pg (27.0-31.0); Mean Platelet Volume 7.7 fL (7.4-10.4); Platelet Count 222 thou/uL (130-400); RBC Distribution Width 12.6 % (11.5-14.5); Red Blood Cell (RBC) Count 4.74 mill/uL (4.20-5.40); White Blood Cell (WBC) Count 6.1 thou/uL (4.8-10.8)
[2019-08-05 05:08] LABS: ALT (SGPT) 8 U/L (8-55); AST (SGOT) 9 U/L (5-34); Albumin 4.2 g/dL (3.5-5.0); Alkaline Phosphatase 66 U/L (40-110); Anion Gap 12 mmol/L (10-20); BUN (Urea Nitrogen) 6 mg/dL (7.0-18.7); Bilirubin, Total 0.2 mg/dL (0.2-1.2); Calc. Creatinine Clearance 0 mL/min (70-130); Calcium 9.2 mg/dL (7.8-10.44); Carbon Dioxide 24 mmol/L (22-29); Chloride 108 mmol/L (98-107); Estimated GFR-MDRD 90; Globulin 3.2 g/dL (2.4-3.5); Glucose 102 mg/dL (70-105); Protein, Total 7.4 g/dL (6.0-8.3); Sodium 140 mmol/L (136-145)
[2019-08-05 05:24] LABS: Band 4 % (5-11); Eosinophils 6 % (0-10); Lymphocytes 53 % (21-51); MDiff Complete? YES; Monocytes 5 % (0-10); Neutrophil 25 % (42-75); Platelet Morphology Comment Appears Adequate; Reactive Lymphocytes 6 % (0-10)
[2019-08-05] MEDS ORDERED: Ketorolac Tromethamine 30 MG/ML VIAL ONE (05:43)
[2019-08-05 07:12] LABS: Troponin I Less than 0.010 ng/mL (< 0.028)
--- NOTE | 2019-08-05 07:40 | RAD ---
EXAM: Portable chest PROVIDED CLINICAL HISTORY: Chest pain COMPARISON: 03/15/2019 FINDINGS: Cardiac and mediastinal silhouette is within normal limits. No focal consolidation, pleural fluid or pneumothorax evident. Electronic devices external to the patient obscure portions of the chest. IMPRESSION: No evidence for an acute cardiopulmonary process.
[2019-08-05] MEDS ORDERED: Lorazepam 2 MG/ML VIAL ONE (08:09)
--- NOTE | 2019-08-08 14:07 | EKG ---
Test Reason : Blood Pressure : / mmHG Vent. Rate : 083 BPM Atrial Rate : 083 BPM P-R Int : 170 ms QRS Dur : 088 ms QT Int : 408 ms P-R-T Axes : 042 -02 008 degrees QTc Int : 479 ms Normal sinus rhythm Possible Left atrial enlargement Left ventricular hypertrophy Nonspecific T wave abnormality Prolonged QT Abnormal ECG Confirmed by DEMARCO SHRESTHA ([id number]), supervising editor news reel JESSICA HURLEY ([id number]) on 08/08/2019 2:07:09 PM Referred By: Confirmed By:DEMARCO SHRESTHA
== END 2019-08-05 08:40 | disposition home or self-care (01) ==
LOC: ERS 03:49
DX: F41.9 Anxiety disorder, unspecified (principal); R07.89 Other chest pain; I11.0 Hypertensive heart disease with heart failure; I50.9 Heart failure, unspecified; K21.9 Gastro-esophageal reflux disease without esophagitis; F43.10 Post-traumatic stress disorder, unspecified; Z79.891 Long term (current) use of opiate analgesic; Z86.711 Personal history of pulmonary embolism
CPT/HCPCS: 36415; 71045; 80053; 83880; 84484; 85025; 93005; 96374; 96375; J1885; J2060

== ENCOUNTER 2020-01-11 23:58 | Emergency (ER) | payer OTHER ==
[2020-01-12 01:23] LABS: #Basophils 0.1 thou/uL (0.0-0.2); #Eosinphils 0.4 thou/uL (0.0-0.7); #Lymphocytes 3.1 thou/uL (1.20-3.40); #Monocytes 0.7 thou/uL (0.11-0.59); #Neutrophils 3.4 thou/uL (1.40-6.50); %Basophils 1.6 % (0.0-1.0); %Eosinophils 5.2 % (0.0-10.0); %Monocytes 9.1 % (0.0-10.0); %Neutrophils 44.1 % (42.0-75.0); Hemoglobin 10.8 g/dL (12.0-16.0); Mean Corpuscular HGB CONC 30.3 g/dL (32.0-36.0); Mean Corpuscular Volume 75.8 fL (78.0-98.0); Mean Platelet Volume 8.5 fL (7.4-10.4); Platelet Count 276 thou/uL (130-400); RBC Distribution Width 14.8 % (11.5-14.5); White Blood Cell (WBC) Count 7.7 thou/uL (4.8-10.8)
[2020-01-12 01:43] LABS: ALT (SGPT) Less than 7 U/L (8-55); AST (SGOT) 8 U/L (5-34); Albumin 3.7 g/dL (3.5-5.0); Alkaline Phosphatase 60 U/L (40-110); Anion Gap 10 mmol/L (10-20); BUN (Urea Nitrogen) 9 mg/dL (7.0-18.7); Bilirubin, Total 0.3 mg/dL (0.2-1.2); CK (CPK) 64 U/L (29-168); Calc. Creatinine Clearance 0 mL/min (70-130); Calcium 8.7 mg/dL (7.8-10.44); Carbon Dioxide 25 mmol/L (22-29); Chloride 104 mmol/L (98-107); Estimated GFR-MDRD Greater than 90; Globulin 3.1 g/dL (2.4-3.5); Glucose 89 mg/dL (70-105); Lipase 79 U/L (8-78); Potassium 3.8 mmol/L (3.5-5.1); Protein, Total 6.8 g/dL (6.0-8.3); Sodium 135 mmol/L (136-145)
--- NOTE | 2020-01-12 07:31 | RAD ---
Exam: Chest one view HISTORY:Chest pain. Body aches. Comparison: 08/05/2019 FINDINGS: Pacing device: Single lead left-sided defibrillator terminates over the right ventricle. Cardiac silhouette: Normal Aorta: Unremarkable Pulmonary vessels: Normal Costophrenic angles: Clear LUNGS: No masses or consolidation. Pneumothorax: None Osseous abnormalities: None IMPRESSION: No acute cardiopulmonary process.
== END 2020-01-12 02:17 | disposition home or self-care (01) ==
LOC: ERS 23:58
DX: M54.10 Radiculopathy, site unspecified (principal); I11.0 Hypertensive heart disease with heart failure; I50.9 Heart failure, unspecified; K21.9 Gastro-esophageal reflux disease without esophagitis; F41.9 Anxiety disorder, unspecified; F43.10 Post-traumatic stress disorder, unspecified; Z79.01 Long term (current) use of anticoagulants; Z79.899 Other long term (current) drug therapy
CPT/HCPCS: 71045; 80053; 82550; 83690; 84484; 85025; 93005; 94760

== ENCOUNTER 2020-12-06 15:15 | Outpatient (CLI) | payer OTHER | END 2020-12-06 15:16 | disposition home or self-care (01) | LOC: BICRAD 15:15 | PROVIDERS: ATTEND Anesthesiology Addiction Medicine | DX: M54.5 Low back pain (principal); M47.816 Spondylosis without myelopathy or radiculopathy, lumbar region; M43.16 Spondylolisthesis, lumbar region | CPT/HCPCS: 72100; 72110 ==

== ENCOUNTER 2021-03-01 00:19 | Inpatient (IN) | payer OTHER ==
[2021-03-01 05:59] VITALS: BMI 29.1
[2021-03-05 11:01] VITALS: TEMP 98.3
[2021-03-05 12:05] VITALS: BP 110/79
== END 2021-03-05 13:30 | disposition home or self-care (01) | DRG 871 ==
LOC: ERS 00:19 → OBSVTOIN 02:56 → 2SW 02:56 → 2NO 20:38
PROVIDERS: ADMIT Internal Medicine; ATTEND Emergency Medicine
DX: A41.89 Other specified sepsis (principal); I26.99 Other pulmonary embolism without acute cor pulmonale; I21.A1 Myocardial infarction type 2; I42.8 Other cardiomyopathies; I50.22 Chronic systolic (congestive) heart failure; I47.2 Ventricular tachycardia; D62 Acute posthemorrhagic anemia; Z20.822 Contact with and (suspected) exposure to COVID-19; B97.4 Respiratory syncytial virus as the cause of diseases classified elsewhere; I11.0 Hypertensive heart disease with heart failure; I48.91 Unspecified atrial fibrillation; D64.9 Anemia, unspecified; K21.9 Gastro-esophageal reflux disease without esophagitis; F43.10 Post-traumatic stress disorder, unspecified; N92.0 Excessive and frequent menstruation with regular cycle; E87.6 Hypokalemia; E66.9 Obesity, unspecified; Z95.810 Presence of automatic (implantable) cardiac defibrillator; Z86.711 Personal history of pulmonary embolism; Z88.2 Allergy status to sulfonamides; Z79.01 Long term (current) use of anticoagulants; Z79.51 Long term (current) use of inhaled steroids; Z79.899 Other long term (current) drug therapy; Z98.51 Tubal ligation status; Z68.28 Body mass index [BMI] 28.0-28.9, adult
CPT/HCPCS: 0241U; 36415; 71045; 71275; 76856; 80048; 80053; 80061; 81003; 81015; 82553; 83605; 83735; 83880; 84443; 84484; 84703; 85014; 85018; 85025; 85049; 85730; 86850; 86870; 86900; 86901; 86905; 86922; 87040; 93005; 93306; 93970; 94760; 96365; 96367; 96372; J0692; J0696; J1644; J1650; J3370; J3490; Q9967

== ENCOUNTER 2021-04-22 20:48 | Emergency (ER) | payer OTHER | END 2021-04-22 21:44 | disposition left against medical advice (07) | LOC: ERS 20:48 | DX: Z53.21 Procedure and treatment not carried out due to patient leaving prior to being seen by health care provider (principal) | CPT/HCPCS: 93005 ==

== ENCOUNTER 2021-07-31 23:11 | Emergency (ER) | payer OTHER ==
[2021-07-31] MEDS ORDERED: Morphine 4 MG/ML VIAL ONE (23:35)
[2021-07-31 23:57] LABS: ALT (SGPT) Less than 7 U/L (8-55); AST (SGOT) 9 U/L (5-34); Albumin 3.7 g/dL (3.5-5.0); Alkaline Phosphatase 56 U/L (40-110); Anion Gap 10 mmol/L (10-20); BUN (Urea Nitrogen) 4 mg/dL (7.0-18.7); Bilirubin, Total 0.3 mg/dL (0.2-1.2); Calc. Creatinine Clearance 0 mL/min (70-130); Calcium 8.8 mg/dL (7.8-10.44); Carbon Dioxide 21 mmol/L (22-29); Chloride 109 mmol/L (98-107); Globulin 3.3 g/dL (2.4-3.5); Glucose 119 mg/dL (70-105); Potassium 3.2 mmol/L (3.5-5.1); Sodium 137 mmol/L (136-145)
[2021-08-01 00:05] LABS: #Basophils 0.1 thou/uL (0.0-0.2); #Eosinphils 0.4 thou/uL (0.0-0.7); #Lymphocytes 2.1 thou/uL (1.20-3.40); #Monocytes 0.6 thou/uL (0.11-0.59); #Neutrophils 3.1 thou/uL (1.40-6.50); %Basophils 1.8 % (0.0-1.0); %Eosinophils 6.6 % (0.0-10.0); %Lymphocytes 33.9 % (21.0-51.0); %Neutrophils 48.7 % (42.0-75.0); Anisocytosis MODERATE=16-30 cells (100X) (0-5/hpf); Elliptocytes SLIGHT = 2-5 cells (100X) (0-1/hpf); Hemoglobin 7.5 g/dL (12.0-16.0); MDiff Complete? YES; Mean Corpuscular HGB CONC 30.2 g/dL (32.0-36.0); Mean Corpuscular Hemoglobin 17.8 pg (27.0-31.0); Mean Corpuscular Volume 58.9 fL (78.0-98.0); Mean Platelet Volume 5.7 fL (7.4-10.4); Microcytosis SLIGHT = 6-15 cells (100X) (0-5/hpf); Platelet Count 270 thou/uL (130-400); Platelet Morphology Comment Appears Adequate; Polychromasia SLIGHT = 2-3 cells (100X) (0-2/hpf); RBC Distribution Width 19.1 % (11.5-14.5); Red Blood Cell (RBC) Count 4.24 mill/uL (4.20-5.40); Reflex for Review?? YES; White Blood Cell (WBC) Count 6.3 thou/uL (4.8-10.8)
[2021-08-01 00:34] LABS: SARS-CoV-2 NAA Rapid Test Not Detected (NotDetected)
[2021-08-01] MEDS ORDERED: Diazepam 10 MG/2 ML SYRINGE ONE (02:00)
== END 2021-08-01 02:55 | disposition home or self-care (01) ==
LOC: ERS 23:11
DX: D64.9 Anemia, unspecified (principal); M54.9 Dorsalgia, unspecified; Z20.822 Contact with and (suspected) exposure to COVID-19; I11.0 Hypertensive heart disease with heart failure; I50.9 Heart failure, unspecified; K21.9 Gastro-esophageal reflux disease without esophagitis; Z79.01 Long term (current) use of anticoagulants; Z79.899 Other long term (current) drug therapy
CPT/HCPCS: 36415; 71045; 80053; 84484; 85025; 85060; 93005; 96374; 96375; J2270; J3360; U0002

== ENCOUNTER 2022-01-07 17:47 | Emergency (ER) | payer OTHER ==
[2022-01-07 18:56] LABS: #Basophils 0.1 thou/uL (0.0-0.2); #Eosinphils 0.3 thou/uL (0.0-0.7); #Lymphocytes 2.2 thou/uL (1.20-3.40); #Monocytes 0.5 thou/uL (0.11-0.59); #Neutrophils 2.4 thou/uL (1.40-6.50); %Basophils 1.9 % (0.0-1.0); %Eosinophils 6.3 % (0.0-10.0); %Lymphocytes 39.6 % (21.0-51.0); %Monocytes 9.7 % (0.0-10.0); %Neutrophils 42.5 % (42.0-75.0); Hemoglobin 8.5 g/dL (12.0-16.0); Mean Corpuscular HGB CONC 30.4 g/dL (32.0-36.0); Mean Corpuscular Hemoglobin 20.7 pg (27.0-31.0); Mean Corpuscular Volume 68.1 fL (78.0-98.0); Mean Platelet Volume 9.8 fL (7.4-10.4); Platelet Count 332 thou/uL (130-400); RBC Distribution Width 17.5 % (11.5-14.5); White Blood Cell (WBC) Count 5.6 thou/uL (4.8-10.8)
[2022-01-07 19:05] LABS: BHCG - Serum Negative (NEGATIVE); Pregs Control Background? CLEAR/WHITE (CLR/WHITE); Pregs Control Bar Appear? YES (CONTROL BAR)
[2022-01-07 19:10] LABS: ALT (SGPT) Less than 7 U/L (8-55); AST (SGOT) 10 U/L (5-34); Albumin 3.7 g/dL (3.5-5.0); Alkaline Phosphatase 53 U/L (40-110); Anion Gap 11 mmol/L (10-20); BUN (Urea Nitrogen) 5 mg/dL (7.0-18.7); Bilirubin, Total 0.3 mg/dL (0.2-1.2); Calc. Creatinine Clearance 0 mL/min (70-130); Calcium 8.7 mg/dL (7.8-10.44); Carbon Dioxide 25 mmol/L (22-29); Chloride 106 mmol/L (98-107); Globulin 3.2 g/dL (2.4-3.5); Glucose 98 mg/dL (70-105); Potassium 3.6 mmol/L (3.5-5.1); Protein, Total 6.9 g/dL (6.0-8.3); Sodium 138 mmol/L (136-145)
[2022-01-07 19:17] LABS: Anisocytosis SLIGHT = 6-15 cells (100X) (0-5/hpf); Hypochromia SLIGHT = 6-15 cells (100X) (0-5/hpf); MDiff Complete? YES; Microcytosis SLIGHT = 6-15 cells (100X) (0-5/hpf); Ovalocytes SLIGHT = 2-5 cells (100X) (0-1/hpf); Platelet Morphology Comment Appears Adequate; Polychromasia SLIGHT = 2-3 cells (100X) (0-2/hpf); Target Cells SLIGHT = 2-5 cells (100X) (0-1/hpf)
[2022-01-07 19:28] LABS: Bilirubin Negative (Negative); Blood, Urine 3+ (Negative); Clarity Turbid (Clear); Glucose, Urine (Dipstick) Normal (Negative); Ketone, Urine Negative (Negative); Leukocyte 25 Leu/uL (Negative); Nitrite Negative (Negative); Protein, Urine (Dipstick) 20 mg/dL (Neg-Trace); Specific Gravity, Urine 1.016 (1.002-1.036)
[2022-01-07 19:37] LABS: Squamous Epithelial 0-3 HPF (0-3)
== END 2022-01-07 20:10 | disposition home or self-care (01) ==
LOC: ERS 17:47
DX: N93.9 Abnormal uterine and vaginal bleeding, unspecified (principal); R07.9 Chest pain, unspecified; I11.0 Hypertensive heart disease with heart failure; I50.9 Heart failure, unspecified; K21.9 Gastro-esophageal reflux disease without esophagitis; Z79.899 Other long term (current) drug therapy
CPT/HCPCS: 36415; 71045; 80053; 81003; 81015; 83880; 84484; 84703; 85025; 86850; 86870; 86900; 86901; 93005

== ENCOUNTER 2022-08-24 14:20 | Outpatient (CLI) | payer OTHER | END 2022-08-24 14:21 | disposition home or self-care (01) | LOC: BICRAD 14:20 | PROVIDERS: ATTEND Anesthesiology Addiction Medicine | DX: M54.6 Pain in thoracic spine (principal); M54.2 Cervicalgia; M47.894 Other spondylosis, thoracic region; M47.892 Other spondylosis, cervical region | CPT/HCPCS: 72050; 72072 ==

== ENCOUNTER 2023-12-16 16:40 | Emergency (ER) | payer OTHER ==
[2023-12-16] MEDS ORDERED: Acetaminophen 500 MG TAB ONE (17:38)
== END 2023-12-16 17:42 | disposition home or self-care (01) ==
LOC: ERS 16:40
DX: K08.89 Other specified disorders of teeth and supporting structures (principal); I11.0 Hypertensive heart disease with heart failure; I50.9 Heart failure, unspecified
CPT/HCPCS: 99282

== ENCOUNTER 2024-02-16 12:36 | Emergency (ER) | payer OTHER ==
[2024-02-16] MEDS ORDERED: Ketorolac Tromethamine 30 MG (1 mL) VIAL ONE (14:56)
== END 2024-02-16 15:35 | disposition home or self-care (01) ==
LOC: ERS 12:36
DX: S80.11XA Contusion of right lower leg, initial encounter (principal); M25.551 Pain in right hip; M25.511 Pain in right shoulder; I11.0 Hypertensive heart disease with heart failure; I50.9 Heart failure, unspecified; W22.8XXA Striking against or struck by other objects, initial encounter
CPT/HCPCS: 72170; 96372; J1885

== ENCOUNTER 2025-08-06 16:36 | Emergency (ER) | payer MEDICAID, OTHER ==
[2025-08-06 18:55] LABS: #Basophils 0.06 10x3/uL (0.0-0.2); #Eosinophils 0.27 10x3/uL (0.0-0.7); #Monocytes 0.49 10x3/uL (0.11-0.59); #Neutrophils 1.91 10x3/uL (1.40-6.50); %Basophils 1.1 % (0.0-1.0); %Eosinophils 5.1 % (0.0-10.0); %Lymphocytes 48.6 % (21.0-51.0); %Monocytes 9.2 % (0.0-10.0); %Neutrophils 35.8 % (42.0-75.0); Hematocrit 25.9 % (36.0-47.0); Hemoglobin 7.6 g/dL (12.0-16.0); Mean Corpuscular Hemoglobin 19.6 pg (27.0-31.0); Mean Corpuscular Volume 66.9 fL (78.0-98.0); Platelet Count 348 10x3/uL (130-400); Red Blood Cell (RBC) Count 3.87 mill/uL (4.20-5.40); White Blood Cell (WBC) Count 5.33 10x3/uL (4.8-10.8)
[2025-08-06 19:13] LABS: ALT (SGPT) Less than 7 U/L (Less than 34); AST (SGOT) 13 U/L (11-34); Albumin 3.8 g/dL (3.1-4.5); Alkaline Phosphatase 53 U/L (40-110); Anion Gap 12 mmol/L (10-20); BUN (Urea Nitrogen) 7 mg/dL (7.0-18.7); Bilirubin, Total 0.2 mg/dL (0.3-1.2); Calc. Creatinine Clearance 0 mL/min (70-130); Calcium 8.9 mg/dL (7.8-10.44); Carbon Dioxide 23 mmol/L (22-29); Chloride 106 mmol/L (98-107); Globulin 2.9 g/dL (2.4-3.5); Glucose 89 mg/dL (70-105); Potassium 4.1 mmol/L (3.5-5.1); Sodium 137 mmol/L (136-145)
[2025-08-06 19:26] LABS: CAUTI Indications for Culture Alt mental st,lethar; Glucose, Urine (Dipstick) Normal (Negative); Leukocyte 250 Leu/uL (Negative); Protein, Urine (Dipstick) Negative (Neg-Trace); RBC/HPF 0-3 HPF (0-3); Specific Gravity, Urine 1.013 (1.002-1.036)
[2025-08-06 19:27] LABS: Bacteria/HPF 1+ HPF (None Seen)
[2025-08-06 19:28] LABS: Urine Culture Reflex Yes Yes
[2025-08-06 19:55] LABS: Magnesium 2.0 mg/dL (1.6-2.6)
[2025-08-06 19:58] LABS: INR-International Normal Ratio 1.1; PTT 28.6 sec (22.9-36.1); Prothrombin Time 14.5 sec (12.0-14.7)
[2025-08-06 19:59] LABS: D-Dimer Test 0.43 mcg/mL (0.27-0.43)
[2025-08-06] MEDS ORDERED: Ondansetron PF 4 MG/2 ML Vial ONE (20:05)
[2025-08-06] MEDS ORDERED: Acetaminophen 325 MG TAB ONE (22:16)
[2025-08-06] MEDS ORDERED: cefTRIAXone (ROCEPHIN) 1 GM VIAL ONE (22:16)
== END 2025-08-07 00:17 | disposition home or self-care (01) ==
LOC: ERS 16:36
DX: R07.9 Chest pain, unspecified (principal); N39.0 Urinary tract infection, site not specified; F41.1 Generalized anxiety disorder; I11.0 Hypertensive heart disease with heart failure; I50.9 Heart failure, unspecified; Z79.01 Long term (current) use of anticoagulants; Z79.899 Other long term (current) drug therapy
CPT/HCPCS: 36415; 71045; 80053; 81001; 83735; 83880; 84443; 84484; 85025; 85379; 85610; 85730; 87077; 87086; 87186; 93005; 96365; 96366; J0696; J2270; J2405